=== PATIENT | male | born 1970 | race Caucasian/White ===

== ENCOUNTER → 2017-03-28 | Outpatient (CLI) | payer BC ==
--- NOTE | 2017-03-28 12:03 | DIAGNOSTIC IMAGING REPORT ---
LEFT SHOULDER 3 VIEWS HISTORY: Left shoulder pain. COMPARISON: Left shoulder 07/06/2011. FINDINGS: There is no fracture or dislocation. Soft tissues are unremarkable. The left clavicle is intact. IMPRESSION: No fracture or dislocation within the left shoulder. Electronically signed by: Brian García M.D. 03/28/2017 12:02 PM Dictated Date/Time: 03/28/2017 12:01 PM
== END | disposition home or self-care (01) ==
LOC: C.RAD1850 11:39
PROVIDERS: ATTEND Student in an Organized Health Care Education/Training Program
DX: S49.92XA Unspecified injury of left shoulder and upper arm, initial encounter (principal); X58.XXXA Exposure to other specified factors, initial encounter

== ENCOUNTER → 2017-08-24 | Day surgery (SDC) | payer BC ==
[2017-08-10 07:44] VITALS: Ht 170.2 cm; Wt 102.3 kg
[~2017-08-24] VITALS: Ht 170.2 cm; Wt 102.3 kg
[~2017-08-24] MED LIST: ATROPINE SULFATE 0.1 MG/ML 5ML SYR IV PRN; BUPIVACAINE 0.25% 30 ML VIAL ONE; CEFAZOLIN 2000MG IV PUSH 15 ML IV SCH; DEXAMETHASONE SOD INJ 4 MG/ML VIAL ONE; EpHEDrine SULFATE INJ 50 MG/ML AMP IV PRN; EpINEphrine INJ 1MG/ML AMP 1 MG/ML AMP ONE; FENTANYL CITRATE INJ 50 MCG/1 ML 2 ML VIAL IV PRN; KETO10TA PO; KETOROLAC TROMETHAMINE 30 MG/ML VIAL IV. PRN; LACTATED RINGER'S 1000ML 1,000 ML IV SCH; LIDOCAINE HCL 2% 2 ML VIAL (20MG/ML) ONE; METHYLPREDNISOLONE ACETATE 80 MG/ML VIAL ONE; MIDAZOLAM HCL 1 MG/ML 2ML VIAL ONE; ONDANSETRON INJ 2 MG/ML 2 ML VIAL IV PRN; ONDANSETRON INJ 2 MG/ML 2 ML VIAL ONE; OXYC-57 PO; OXYCODONE/ACETAMINOPHEN 5-325 TAB PO PRN; PROPOFOL IV EMULSION 10 MG/ML 20 ML VIAL IV ONE; ROPIVACAINE 0.5% 5 MG/ML 30 ML VIAL ONE; SODIUM CHLORIDE 0.9% 1000ML 1,000 ML IV SCH
--- NOTE | 2017-08-24 11:30 | History & Physical Bridge - [place] ---
H&P Re-Evaluation Bridge Note: I have examined the patient, reviewed the History & Physical and in the interval since the performance of the History & Physical I have noted the following changes of clinical significance: No changes noted
--- NOTE | 2017-08-24 15:48 | [facility] Post Operative Brief Note ---
Immediate Operative Summary Operative Date Aug 24, 2017. Pre-Operative Diagnosis Left Shoulder Adhesive Capsulitis Post-Operative Diagnosis Adhesive Capsulitis with Osteoarthritis Procedure(s) Performed Left Shoulder Arthroscopic Capsular Release, Removal of loose bodies Surgeon Dr. Hathaway Power Transmission Engineer Surgeon(s) Alexys Gurrola PA-C Estimated Blood Loss 5ml Findings Consistent with Post-Op Diagnosis Specimens None Drains None Anesthesia Type General Regional Complication(s) none Disposition Disposition: Recovery Room / PACU
--- NOTE | 2017-08-24 15:57 | Discharge Instructions-SurgCtr ---
Discharge Instructions Date of Service Aug 24, 2017. Visit Reason for Visit: Left Shoulder Adhesive Capsulitis Discharge Discharge Diagnosis / Problem: SAME ABOVE Discharge Goals Goal(s): Decrease discomfort, Improve function Activity Recommendations Activity Limitations: as noted below Lifting Limitations: gradually increase as tolerated Exercise/Sports Limitations: gradually increase as tolerated Shower/Bathe: tomorrow Driving or Machine Use: WHEN OUT OF THE SLING AND OFF OF PAIN MEDICATION Anesthesia . Post Anesthesia Instructions: If you have had General Anesthesia or IV Sedation: * Do not drive today. * Resume driving when surgeon permits. * Do not make important decisions or sign legal documents today. * Call surgeon for: 1. Temperature elevations greater than 101 degrees F. 2. Uncontrollable pain. 3. Excessive bleeding. 4. Persistent nausea and vomiting. 5. Medication intolerance (nausea, vomiting or rash). * For nausea and vomiting use only clear liquids such as: tea, soda, bouillon until nausea subsides, then gradually increase diet as tolerated. * If you have any concerns or questions, call your surgeon's office. If physician is unavailable and it is an emergency, call 911 or go to the nearest emergency room. . Instructions / Follow-Up Instructions / Follow-Up MEDICATIONS: * Resume previous medications unless instructed otherwise by your surgeon. * Always take pain medication on a full stomach or with food to avoid upset stomach. * Do not drink alcohol or drive while taking narcotics. * Ibuprofen or Tylenol may be taken if narcotic not needed. SPECIAL CARE INSTRUCTIONS: __ None _X_ Keep extremity elevated and iced x 48 hours; apply ice 20-30 minutes 8-10 times/day. May remove at night. _X_ Sling (REMOVE TOMORROW) __24 hrs/day __ Remove at night __ Shoulder Immobilizer __ 24 hrs/day __ Remove at night _X_ Dressing __ Maintain until seen in office, may shower with plastic over site _X_ Remove dressings in 24-48 hours and then may shower _X_ Cover incisions with band-aids after showering __ Do not remove steri-strips Call physician if chills or temperature rises above 102 degrees or pain unrelieved by prescribed pain medications at . . Diet Recommendations Home Diet: no limitations Fluid Restriction: None Procedures Procedures Performed: Left Shoulder Arthroscopic Capsular Release, Removal of loose bodies Pending Studies Studies pending at discharge: no Work Instructions Return To Work: 3 days (OR WHEN PAIN IS CONTROLLED ) Medical Emergencies . Who to Call and When: Medical Emergencies: If at any time you feel your situation is an emergency, please call 911 immediately. . Non-Emergent Contact Non-Emergency issues call your: Primary Care Provider Call Non-Emergent contact if: you have a fever, temperature is above 101.5 . . "Provider Documentation" section prepared by Narciso Gurrola. .
[2017-08-24 16:39] VITALS: TEMP 36
--- NOTE | 2017-08-24 16:40 | Anesthesia Progress Nt - [facility] ---
Anesthesia Post Op Note Date & Time Aug 24, 2017 at 16:40 Vital Signs Pain Intensity: 0 Vital Signs Past 12 Hours Date Time Temp Pulse Resp B/P (MAP) Pulse Ox O2 Delivery O2 Flow Rate FiO2 08/24/17 16:22 36.2 79 20 143/87 98 Room Air 08/24/17 16:21 76 20 99 08/24/17 16:21 76 20 08/24/17 16:20 143/87 08/24/17 16:16 72 19 100 08/24/17 16:16 72 19 08/24/17 16:15 138/88 08/24/17 16:11 69 20 08/24/17 16:11 69 20 100 08/24/17 16:10 136/80 08/24/17 16:06 70 23 100 08/24/17 16:06 69 23 08/24/17 16:05 121/82 08/24/17 16:01 73 21 08/24/17 16:01 73 21 100 08/24/17 16:00 140/91 08/24/17 15:57 152/91 08/24/17 15:56 36.1 80 20 152/91 99 Mask 6 08/24/17 15:56 80 98 08/24/17 15:56 80 08/24/17 14:55 71 08/24/17 14:55 71 0 123/88 98 08/24/17 14:50 74 08/24/17 14:50 73 6 114/78 99 08/24/17 14:45 76 08/24/17 14:45 77 18 122/82 98 08/24/17 14:40 79 08/24/17 14:40 79 31 120/83 98 08/24/17 14:35 75 08/24/17 14:35 75 18 133/88 98 08/24/17 14:30 76 08/24/17 14:30 75 10 133/95 99 08/24/17 14:25 74 08/24/17 14:25 74 3 119/80 99 08/24/17 14:20 78 20 136/104 99 08/24/17 14:20 79 08/24/17 14:15 76 8 143/90 99 08/24/17 14:15 76 08/24/17 14:10 76 18 144/86 99 08/24/17 14:10 77 08/24/17 14:05 78 18 137/91 99 08/24/17 14:05 77 08/24/17 14:00 78 08/24/17 14:00 78 5 129/93 99 08/24/17 13:55 76 16 133/96 100 08/24/17 13:55 75 08/24/17 13:55 72 9 140/94 (109) 99 Mask 6 08/24/17 13:53 140/94 08/24/17 13:50 84 0 08/24/17 13:45 71 0 08/24/17 13:40 72 0 08/24/17 13:35 70 0 08/24/17 13:30 67 0 08/24/17 13:25 70 0 08/24/17 13:20 69 0 08/24/17 13:15 72 0 08/24/17 13:10 74 0 08/24/17 13:05 79 0 08/24/17 13:00 78 0 08/24/17 12:55 75 0 08/24/17 12:50 71 0 08/24/17 12:45 74 0 08/24/17 11:55 36.8 78 20 138/95 (109) 97 Room Air Notes Mental Status: alert / awake / arousable, participated in evaluation Pt Amnestic to Procedure: Yes Nausea / Vomiting: adequately controlled Pain: adequately controlled Airway Patency, RR, SpO2: stable & adequate BP & HR: stable & adequate Hydration State: stable & adequate Anesthetic Complications: no major complications apparent
--- NOTE | 2017-08-24 16:56 | OPERATIVE REPORT ---
DATE OF OPERATION: 08/24/2017 PREOPERATIVE DIAGNOSIS: Adhesive capsulitis, left shoulder. POSTOPERATIVE DIAGNOSIS: Adhesive capsulitis with posterior glenohumeral arthritis. PROCEDURES: Left shoulder diagnostic arthroscopy with extensive debridement, lysis of adhesions, and manipulation under anesthesia. SURGEON: Dr. Baljinder Hathaway. MULTIP[employer]CH [employer]OCK[employer] CREWMEMBER: Narciso Gurrola PA-C, whose assistance was necessary for positioning of the arm and help with instrumentation and closure. ANESTHESIA: General with left interscalene nerve block. COMPLICATIONS: None. CONDITION: Stable to PACU. INDICATIONS: Antonio is a pleasant 47-year-old male who presented to my office with a complaint of left shoulder pain since March when he was kicked by steer. MRI and clinical examination were diagnostic for adhesive capsulitis. After failing conservative treatment, he elected to proceed with capsular release. OPERATION AND FINDINGS: On August 24, 2017, he arrived at [facility] for the above procedure. He was seen in the preoperative holding area, and the operative extremity was identified and signed. He was given the preoperative antibiotic and the left interscalene nerve block. He was taken back to the operating room, laid on table in supine position, and put under general anesthesia. He was then put into the beach chair position. The left shoulder was prepped and draped in sterile fashion. Timeout was done. The patient's left upper extremity was appropriately identified. On preoperative physical examination, he only had about 60 degrees of abduction and 20 degrees of external rotation. A gentle manipulation was done under anesthesia to help facilitate insertion of the arthroscope. The scope was then placed in the posterior portal. Diagnostic arthroscopy showed grade 3 cartilage damage to the posterior aspect of the humeral head. There was a 2 cm x 2 cm area of grade 4 chondral loss and chunking of the cartilage in the posterior central aspect of the glenoid. There were a couple of small loose bodies. The biceps tendon was intact, with a normal size biceps dandy mechanism. Supraspinatus, infraspinatus, teres minor, and subscapularis were all checked and intact. There was significant redness and inflammation of the rotator interval, the middle and inferior glenohumeral ligaments. An anterior portal was made. A shaver was used to start an extensive debridement of the intraarticular structures. Time was spent opening up the interval some and removing all frayed labral or capsular tissue. Time was then also spent debriding around the humeral condyle completing the chondroplasty and debriding the chunks of cartilage off the glenoid defect. An ablator was then used to open up the rotator interval. Time was spent completely releasing the ligament all the way to the undersurface of the coracoid. Care was taken not to disrupt the biceps dandy mechanism. The ablator was then used to do lysis of adhesions of the middle and anterior inferior glenohumeral ligaments. Care was taken not to disrupt the subscapularis or the axillary nerve. Shaver was used to continue debridement and remove any redundant capsular or labral tissue. The scope was then placed in the anterior portal into the posterior portal. Shaver was used to continue posterior debridement. The posterior labrum was debrided back to stable margins, and the cartilage lesion was better visualized. Given the size of the lesion and the fact he had arthritis on both the humeral and glenoid sides, I did not feel microfracture was necessary. Arthroscopic instruments were then removed from the shoulder. Another manipulation was done under anesthesia. I was able to get full range of motion of shoulder. The scope was slid back into the glenohumeral joint, and final hemostasis was obtained. A spinal needle was placed. Arthroscopic instrument removed. Portal sites closed with 3-0 nylon. The shoulder was then injected with 80 mg of Depo-Medrol and 5 mL of Marcaine. It was then placed in a soft dressing and regular arm sling. He was then extubated, transferred to a [facility], and taken to the postanesthesia care unit in stable condition. He tolerated the procedure well. I attest to the content of the Intraoperative Record and any orders documented therein. Any exception s are noted below.
[2017-08-24 16:58] VITALS: BP 140/83; PULSE 73; O2SAT 98
== END | disposition home or self-care (01) ==
LOC: X.SURG 11:44
PROVIDERS: ATTEND Orthopaedic Surgery
DX: M75.02 Adhesive capsulitis of left shoulder (principal); W55.22XA Struck by cow, initial encounter; M19.012 Primary osteoarthritis, left shoulder; E66.9 Obesity, unspecified; F17.220 Nicotine dependence, chewing tobacco, uncomplicated